=== PATIENT | female | born 1935 | race Hispanic/Latino ===

== ENCOUNTER 2017-02-20 15:53 | Outpatient (CLI) | payer MEDICARE ==
--- NOTE | 2017-02-20 18:52 | XRay Report ---
FINAL REPORT EXAM: XR TOE(S) 2+V LT HISTORY: TOE INJURY TECHNIQUE: 3 views Left foot PRIORS: None. FINDINGS: Skeletal structures are osteopenic. And there is hallux valgus deformity at the 1st metatarsal-phalangeal joint on the views obtained no definitive fracture is identified. No erosive bony changes are observed. IMPRESSION: Osteopenia Hallux valgus
== END 2017-02-20 15:54 | disposition home or self-care (01) ==
LOC: SPVIMAG 15:53
PROVIDERS: ATTEND Internal Medicine
DX: M20.12 Hallux valgus (acquired), left foot (principal); M85.872 Other specified disorders of bone density and structure, left ankle and foot